=== PATIENT | female | born 1985 | race American Indian/Alaskan Native ===

== ENCOUNTER 2021-07-27 15:46 | Observation (INO) | payer OTHER ==
[2021-07-27] MEDS ORDERED: LACTATED RINGERS 1,000 ML IV ONE (18:44)
[2021-07-27] MEDS ORDERED: DOCUSATE SODIUM 100 MG CAP PO PRN (18:47)
[2021-07-27] MEDS ORDERED: ACETAMINOPHEN 325 MG TAB PO PRN (18:47)
--- NOTE | 2021-07-27 18:59 | History and Physical Report ---
History of Present Illness Date of examination: 07/27/21 Date of admission: 07/27/2021 Chief complaint: Contractions History of present illness: 36 year old female presents to L&D complaining of contractions. Patient denies vaginal bleeding. Patient reports slightly decreased movement today. Patient denies falls or abdominal trauma. Patient receives care at [facility]. No records are available. Patient states her EDC is 08/28/21. LMP uncertain. Patient reports no problems during except echogenic intracardiac foci on US which she states was no longer seen on follow up US. Patient denies any health problems. She states she is taking PNV and iron supplements. Patient reports a history of 4 previous full term vaginal births. US and labs were drawn upon admission. Past History Past Medical History: no pertinent history Past Surgical History: other (inguinal hernia repaired at age 7 years) [facility] History: denies: chlamydia, gonorrhea, hepatitis B, hepatitis C, HIV, syphilis, trichomonas Family/Genetic History: diabetes, heart disease, cancer Social history: lives with family, full code. denies: smoking, alcohol abuse, prescription drug abuse, IV drug use - Obstetrical History Expected Date of Delivery: 08/28/21 Actual Gestation: 35 Week(s) 3 Day(s) : 6 Para: 4 Hx # Term Pregnancies: 4 Number of Pregnancies: 0 Spontaneous Abortions: 1 Induced : 0 Number of Living Children: 4 Medications and Allergies Allergies Allergy/AdvReac Type Severity Reaction Status Date / Time No Known Allergies Allergy Verified 02/22/18 00:57 Home Medications Medication Instructions Recorded Confirmed Last Taken Type Ferrous Sulfate [Iron] 1 tab PO BID 02/24/18 02/24/18 02/22/18 History Tablet 1 tab PO DAILY 02/24/18 02/24/18 02/22/18 History Active Meds: Active Medications Acetaminophen (Acetaminophen 325 Mg Tab) 650 mg PO Q4H PRN PRN Reason: Pain MILD(1-3)/Fever >100.5/MERIDA Betamethasone Acet/Betameth SodPhos (Betamet Acet/Betamet Na Ph 6 Mg/Ml Inj 5 Ml Mdv) 12 mg IM Q24HR KIRK Stop: 07/28/21 10:01 Docusate Sodium (Docusate Sodium 100 Mg Cap) 100 mg PO Q12H PRN PRN Reason: Constipation Lactated Ringer's (Lactated Ringers) 1,000 mls @ 999 mls/hr IV BOLUS ONE Stop: 07/27/21 19:44 Lactated Ringer's (Lactated Ringers) 1,000 mls @ 125 mls/hr IV DIRECT KIRK Multivitamins/Iron/Calcium ( [id number] Fumarate-Folic Acid Vit Tab) 1 each PO QDAY KIRK Review of Systems All systems: negative (contractions, slightly decreased movement) - Vital Signs Vital signs: Vital Signs Pulse Pulse Ox 94 H 96 07/27/21 18:08 07/27/21 18:08 Temp Pulse Resp BP Pulse Ox 98.3 F 98 H 99/58 98 07/27/21 18:30 07/27/21 18:53 07/27/21 18:16 07/27/21 18:53 ROM plus negative. - Physical Exam Abdomen: Positive: normal appearance, soft. Negative: distention, tenderness, guarding, rigidity Genitourinary (Female): Positive: normal external genitalia, normal perenium. Negative: perineal/vulvar lesions Vagina: Positive: normal moisture Uterus: Positive: enlarged. Negative: tender Anus/Rectum: Positive: normal perianal skin Extremities: Negative: tenderness - Obstetrical FHR: category 1 Uterine Contraction Monitor Mode: External Cervical Dilatation: 2 Cervical Effacement Percentage: 50 station: -3 Uterine Contraction Pattern: Irregular Uterine Contraction Intensity: Mild Results All other labs normal. Assessment and Plan A: at 35 weeks, 3 days gestation. contractions. Decreased movement. No records available. P: Admit for 23 hour observation. Continuous EFM. US for EFW, EDC/EGA, JERI, location of placenta, and presentation. labs, urinalysis, urine culture, UDS. IV hydration. Celestone 12 mg IM every 24 hours x 2 doses. Request records. Consulted with Dr. Santos re: this patient and plan of care. Dr. Santos states she is in agreement with POC.
[2021-07-27] MEDS ORDERED: BETAMET ACET/BETAMET NA PH 6 MG/ML INJ 5 ML MDV IM SCH (19:00)
[2021-07-27] MEDS ORDERED: NalbUPHINE 10 MG/1 ML INJ IV ONE (20:49)
[2021-07-27 21:01] LABS: Basophils % (Auto) 0.3 % (0.0-1.8); Eosinophils # (Auto) 0.1 K/mm3 (0.0-0.4); Eosinophils % (Auto) 0.5 % (0.0-4.3); Hematocrit 31.7 % (30.3-42.9); Hemoglobin 11.1 gm/dl (10.1-14.3); Lymphocytes # (Auto) 2.1 K/mm3 (1.2-5.4); Lymphocytes % (Auto) 19.7 % (13.4-35.0); Mean Corpuscular HGB Conc 35 % (30-34); Mean Corpuscular Volume 86 fl (79-97); Monocytes # (Auto) 0.9 K/mm3 (0.0-0.8); Monocytes % (Auto) 8.7 % (0.0-7.3); Platelet Count 222 K/mm3 (140-440); Red Blood Count 3.67 M/mm3 (3.65-5.03); Red Cell Distribution Width 13.8 % (13.2-15.2)
--- NOTE | 2021-07-27 21:36 | Ultrasound Report ---
ULTRASOUND OBSTETRIC INDICATION / CLINICAL INFORMATION: JERI, EDC/EGA, EFW, location placenta, presentation. - Clinical Gestational Age (GA) in weeks, days: 35, 4 TECHNIQUE: Transabdominal. COMPARISON: None available. FINDINGS: Single intrauterine . Biparietal Diameter = 9.2 cm = 37, 2 weeks, days Head Circumference = 29.9 cm = 33, 1 weeks, days Abdominal Circumference = 31.1 cm = 35, 0 weeks, days Femur Length = 7.2 cm = 36, 4 weeks, days Average Ultrasound Age (AUA) = 35, 4 weeks, days Heart Rate: 141 beats per minute. Estimated Weight in grams (if calculated): 2668 g Estimated Weight Growth Percentile (if calculated): 50% Position: cephalic. Cervix: Not visualized. Length in cm (if measured): Not measured Placenta: Right lateral and free of the os. Amniotic Fluid Volume: normal Amniotic Fluid Index (JERI) in cm (if calculated): 7. Maternal Adnexa: Not visualized BREATHING MOVEMENT = 2 GROSS BODY MOVEMENT = 2 TONE = 2 QUALITATIVE AMNIOTIC FLUID VOLUME = 2 TOTAL BIOPHYSICAL SCORE = 8/8 IMPRESSION: 1. Single, living intrauterine with estimated sonographic age of 35, 4 weeks, days. 2. Biophysical score = 8/8. 3. No acute abnormality. Signer Name: Loco Haynes MD Signed: 07/27/2021 9:32 PM Workstation Name: [id number]
[2021-07-27 21:59] LABS: Bilirubin,Urine NEG (Negative); Blood,Urine NEG (Negative); Color,Urine Yellow (Yellow); Protein,Urine <15 mg/dL mg/dL (Negative); RBC,Urine < 1.0 /HPF (0.0-6.0); Urobilinogen,Urine < 2.0 mg/dL (<2.0); WBC,Urine < 1.0 /HPF (0.0-6.0)
[2021-07-27 22:05] LABS: Amphetamine Screen,Urine Negative; Benzodiazepines Screen,Urine Negative; Cannabinoid Screen,Urine Negative; Cocaine Screen,Urine Negative; Methadone Screen,Urine Negative; Opiate Screen,Urine Negative
[2021-07-27 22:23] LABS: Hepatitis C Virus Antibody Non-Reactive (NonReactive)
[2021-07-27] MEDS: LACTATED RINGERS 1,000 ML IV SCH (22:47)
[2021-07-28] MEDS: LACTATED RINGERS 1,000 ML IV SCH (01:29)
--- NOTE | 2021-07-28 04:17 | Progress Note ---
Assessment and Plan A: at 35 weeks, 4 days gestation. contractions. P: Continuous EFM. Patient has received IV hydration. For second dose of steroids this evening as ordered. Subjective - Subjective Date of service: 07/28/21 Principal diagnosis: at 35 weeks, 4 days gestation Patient reports: movement normal, other (contractions are spacing), no new complaints, no loss of fluid, no vaginal bleeding Objective - Vital Signs Vital Signs: Vital Signs - 12hr 07/27/21 07/27/21 07/27/21 18:08 18:13 18:16 Temperature Pulse Rate 94 H 88 85 Respiratory Rate Blood Pressure 99/58 Blood Pressure [Left] O2 Sat by Pulse 96 96 Oximetry 07/27/21 07/27/21 07/27/21 18:18 18:23 18:28 Temperature Pulse Rate 93 H 90 90 Respiratory Rate Blood Pressure Blood Pressure [Left] O2 Sat by Pulse 96 96 98 Oximetry 07/27/21 07/27/21 07/27/21 18:30 18:33 18:38 Temperature 98.3 F Pulse Rate 88 95 H Respiratory Rate Blood Pressure Blood Pressure [Left] O2 Sat by Pulse 96 97 Oximetry 07/27/21 07/27/21 07/27/21 18:43 18:48 18:53 Temperature Pulse Rate 98 H 81 98 H Respiratory Rate Blood Pressure Blood Pressure [Left] O2 Sat by Pulse 97 97 98 Oximetry 07/27/21 07/27/21 07/27/21 18:58 18:59 19:03 Temperature Pulse Rate 90 96 H 86 Respiratory Rate Blood Pressure Blood Pressure [Left] O2 Sat by Pulse 94 94 96 Oximetry 07/27/21 07/27/21 07/27/21 19:13 19:18 19:23 Temperature Pulse Rate 34 L 97 H 86 Respiratory Rate Blood Pressure Blood Pressure [Left] O2 Sat by Pulse 91 96 97 Oximetry 07/27/21 07/27/21 07/27/21 19:28 19:33 19:38 Temperature Pulse Rate 78 89 91 H Respiratory Rate Blood Pressure Blood Pressure [Left] O2 Sat by Pulse 96 96 96 Oximetry 07/27/21 07/27/21 07/27/21 19:43 19:48 19:53 Temperature Pulse Rate 90 91 H 88 Respiratory Rate Blood Pressure Blood Pressure [Left] O2 Sat by Pulse 96 96 98 Oximetry 04/07/27/21 07/27/21 19:57 19:58 20:03 Temperature Pulse Rate 53 L 84 84 Respiratory Rate Blood Pressure Blood Pressure [Left] O2 Sat by Pulse 88 94 98 Oximetry 07/27/21 07/27/21 07/27/21 20:08 20:13 20:18 Temperature Pulse Rate 91 H 87 84 Respiratory Rate Blood Pressure Blood Pressure [Left] O2 Sat by Pulse 97 97 97 Oximetry 07/27/21 07/27/21 07/27/21 20:23 20:28 20:33 Temperature Pulse Rate 89 94 H 86 Respiratory Rate Blood Pressure Blood Pressure [Left] O2 Sat by Pulse 97 98 97 Oximetry 07/27/21 07/27/21 07/27/21 20:38 20:43 20:48 Temperature Pulse Rate 87 84 84 Respiratory Rate Blood Pressure Blood Pressure [Left] O2 Sat by Pulse 98 100 100 Oximetry 07/27/21 07/27/21 07/27/21 20:53 20:58 21:03 Temperature Pulse Rate 94 H 90 91 H Respiratory Rate Blood Pressure Blood Pressure [Left] O2 Sat by Pulse 99 99 100 Oximetry 07/27/21 07/27/21 07/27/21 21:18 21:19 21:20 Temperature Pulse Rate 86 88 Respiratory 14 Rate Blood Pressure 112/69 Blood Pressure 112/69 [Left] O2 Sat by Pulse 99 98 Oximetry 07/27/21 07/27/21 07/27/21 21:24 21:29 21:34 Temperature Pulse Rate 83 92 H 107 H Respiratory Rate Blood Pressure Blood Pressure [Left] O2 Sat by Pulse 98 97 95 Oximetry 07/27/21 07/27/21 07/27/21 21:39 21:44 21:49 Temperature Pulse Rate 100 H 91 H 92 H Respiratory Rate Blood Pressure Blood Pressure [Left] O2 Sat by Pulse 96 95 95 Oximetry 07/27/21 07/27/21 07/27/21 21:54 21:59 22:04 Temperature Pulse Rate 93 H 92 H 91 H Respiratory Rate Blood Pressure Blood Pressure [Left] O2 Sat by Pulse 97 100 99 Oximetry 07/27/21 07/27/21 07/27/21 22:09 22:14 22:24 Temperature Pulse Rate 92 H 89 99 H Respiratory Rate Blood Pressure 120/61 Blood Pressure [Left] O2 Sat by Pulse 97 98 97 Oximetry 07/27/21 07/27/21 07/27/21 22:28 22:29 22:34 Temperature Pulse Rate 101 H 101 H Respiratory 18 Rate Blood Pressure Blood Pressure [Left] O2 Sat by Pulse 97 97 Oximetry 07/27/21 07/27/21 07/27/21 22:39 22:44 22:49 Temperature Pulse Rate 94 H 97 H 95 H Respiratory Rate Blood Pressure Blood Pressure [Left] O2 Sat by Pulse 96 96 96 Oximetry 07/27/21 07/27/21 07/27/21 22:52 22:54 22:59 Temperature Pulse Rate 89 88 88 Respiratory Rate Blood Pressure Blood Pressure [Left] O2 Sat by Pulse 94 98 98 Oximetry 07/27/21 07/27/21 07/27/21 23:01 23:04 23:07 Temperature Pulse Rate 91 H 106 H 93 H Respiratory Rate Blood Pressure Blood Pressure [Left] O2 Sat by Pulse 94 98 94 Oximetry 07/27/21 07/27/21 07/27/21 23:09 23:14 23:17 Temperature Pulse Rate 104 H 94 H 95 H Respiratory Rate Blood Pressure Blood Pressure [Left] O2 Sat by Pulse 95 97 93 Oximetry 07/27/21 07/27/21 07/27/21 23:19 23:23 23:24 Temperature Pulse Rate 95 H 95 H 95 H Respiratory Rate Blood Pressure Blood Pressure [Left] O2 Sat by Pulse 96 94 96 Oximetry 07/27/21 07/27/21 07/27/21 23:28 23:29 23:34 Temperature Pulse Rate 98 H 91 H Respiratory 18 Rate Blood Pressure Blood Pressure [Left] O2 Sat by Pulse 93 94 Oximetry 07/27/21 07/27/21 07/27/21 23:35 23:39 23:42 Temperature Pulse Rate 91 H 89 88 Respiratory Rate Blood Pressure Blood Pressure [Left] O2 Sat by Pulse 94 89 94 Oximetry 07/27/21 07/27/21 07/27/21 23:44 23:47 23:49 Temperature Pulse Rate 86 92 H 93 H Respiratory Rate Blood Pressure Blood Pressure [Left] O2 Sat by Pulse 95 94 97 Oximetry 07/27/21 07/27/21 07/28/21 23:54 23:59 00:04 Temperature Pulse Rate 85 95 H 90 Respiratory Rate Blood Pressure Blood Pressure [Left] O2 Sat by Pulse 96 95 95 Oximetry 0407/28/21 07/28/21 00:07 00:09 00:13 Temperature Pulse Rate 91 H 90 85 Respiratory Rate Blood Pressure Blood Pressure [Left] O2 Sat by Pulse 92 94 91 Oximetry 07/28/21 07/28/21 07/28/21 00:14 00:19 00:21 Temperature Pulse Rate 92 H 90 81 Respiratory Rate Blood Pressure Blood Pressure [Left] O2 Sat by Pulse 95 96 90 Oximetry 07/28/21 07/28/21 07/28/21 00:24 00:29 00:34 Temperature Pulse Rate 98 H 80 89 Respiratory Rate Blood Pressure Blood Pressure [Left] O2 Sat by Pulse 94 96 96 Oximetry 07/28/21 07/28/21 07/28/21 00:39 00:44 00:50 Temperature Pulse Rate 88 88 84 Respiratory Rate Blood Pressure Blood Pressure [Left] O2 Sat by Pulse 99 94 98 Oximetry 07/28/21 07/28/21 07/28/21 00:53 00:55 01:00 Temperature Pulse Rate 82 94 H 92 H Respiratory Rate Blood Pressure 115/69 Blood Pressure [Left] O2 Sat by Pulse 92 97 97 Oximetry 07/28/21 07/28/21 07/28/21 01:05 01:09 01:10 Temperature Pulse Rate 92 H 81 79 Respiratory Rate Blood Pressure Blood Pressure [Left] O2 Sat by Pulse 95 92 98 Oximetry 07/28/21 07/28/21 07/28/21 01:15 01:19 01:20 Temperature Pulse Rate 84 76 89 Respiratory Rate Blood Pressure Blood Pressure [Left] O2 Sat by Pulse 97 94 96 Oximetry 07/28/21 07/28/21 07/28/21 01:24 01:25 01:29 Temperature Pulse Rate 89 89 78 Respiratory Rate Blood Pressure Blood Pressure [Left] O2 Sat by Pulse 94 96 94 Oximetry 07/28/21 07/28/21 07/28/21 01:30 01:35 01:40 Temperature Pulse Rate 85 84 88 Respiratory Rate Blood Pressure Blood Pressure [Left] O2 Sat by Pulse 96 96 98 Oximetry 07/28/21 07/28/21 07/28/21 01:43 01:45 01:50 Temperature Pulse Rate 95 H 86 85 Respiratory Rate Blood Pressure Blood Pressure [Left] O2 Sat by Pulse 93 96 96 Oximetry 07/28/21 07/28/21 07/28/21 01:54 01:55 01:59 Temperature Pulse Rate 86 89 90 Respiratory Rate Blood Pressure Blood Pressure [Left] O2 Sat by Pulse 94 95 94 Oximetry 07/28/21 07/28/21 07/28/21 02:00 02:05 02:07 Temperature Pulse Rate 83 92 H 88 Respiratory Rate Blood Pressure Blood Pressure [Left] O2 Sat by Pulse 93 96 94 Oximetry 07/28/21 07/28/21 07/28/21 02:10 02:13 02:15 Temperature Pulse Rate 92 H 95 H 94 H Respiratory Rate Blood Pressure Blood Pressure [Left] O2 Sat by Pulse 95 94 95 Oximetry 07/28/21 07/28/21 07/28/21 02:20 02:25 02:27 Temperature Pulse Rate 93 H 90 96 H Respiratory Rate Blood Pressure Blood Pressure [Left] O2 Sat by Pulse 95 97 94 Oximetry 07/28/21 07/28/21 07/28/21 02:30 02:33 02:35 Temperature Pulse Rate 94 H 87 90 Respiratory Rate Blood Pressure Blood Pressure [Left] O2 Sat by Pulse 95 93 96 Oximetry 07/28/21 07/28/21 07/28/21 02:38 02:40 02:44 Temperature Pulse Rate 85 97 H 92 H Respiratory Rate Blood Pressure Blood Pressure [Left] O2 Sat by Pulse 94 96 94 Oximetry 07/28/21 07/28/21 07/28/21 02:45 02:50 02:53 Temperature Pulse Rate 93 H 98 H 96 H Respiratory Rate Blood Pressure Blood Pressure [Left] O2 Sat by Pulse 95 97 94 Oximetry 07/28/21 07/28/21 07/28/21 02:55 02:59 03:00 Temperature Pulse Rate 96 H 95 H 90 Respiratory Rate Blood Pressure Blood Pressure [Left] O2 Sat by Pulse 96 91 91 Oximetry 07/28/21 07/28/21 07/28/21 03:05 03:10 03:13 Temperature Pulse Rate 95 H 98 H 97 H Respiratory Rate Blood Pressure Blood Pressure [Left] O2 Sat by Pulse 94 96 93 Oximetry 07/28/21 07/28/21 07/28/21 03:15 03:20 03:35 Temperature Pulse Rate 102 H 99 H 93 H Respiratory Rate Blood Pressure Blood Pressure [Left] O2 Sat by Pulse 96 95 98 Oximetry 07/28/21 07/28/21 07/28/21 03:40 03:45 03:50 Temperature Pulse Rate 89 101 H 95 H Respiratory Rate Blood Pressure Blood Pressure [Left] O2 Sat by Pulse 95 95 96 Oximetry 07/28/21 07/28/21 07/28/21 03:55 04:00 04:05 Temperature Pulse Rate 92 H 92 H 91 H Respiratory Rate Blood Pressure Blood Pressure [Left] O2 Sat by Pulse 96 96 96 Oximetry 07/28/21 07/28/21 04:08 04:10 Temperature Pulse Rate 89 99 H Respiratory Rate Blood Pressure Blood Pressure [Left] O2 Sat by Pulse 93 95 Oximetry - Exam Cardiovascular: Regular rate Lungs: Clear to auscultation Abdomen: Present: normal appearance, soft. Absent: distention, tenderness, guarding, rigidity Uterus: Absent: tenderness Uterine Contraction Monitor Mode: External (Irregular mild contractions) - Labs Labs: Abnormal Labs 07/27/21 19:20 MCHC 35 H Foard % (Auto) 8.7 H Foard # (Auto) 0.9 H Seg Neutrophils % 70.8 H Laboratory Results - last 24 hr 07/27/21 07/27/21 07/27/21 19:20 19:20 21:10 WBC 10.8 RBC 3.67 Hgb 11.1 Hct 31.7 MCV 86 MCH 30 MCHC 35 H RDW 13.8 Plt Count 222 Lymph % (Auto) 19.7 Foard % (Auto) 8.7 H Eos % (Auto) 0.5 Baso % (Auto) 0.3 Lymph # (Auto) 2.1 Foard # (Auto) 0.9 H Eos # (Auto) 0.1 Baso # (Auto) 0.0 Seg Neutrophils % 70.8 H Seg Neutrophils # 7.6 Urine Color Yellow Urine Turbidity Clear Urine pH 7.0 Ur Specific [place] 1.009 Urine Protein <15 mg/dl Urine Glucose (UA) Neg Urine Ketones 20 Urine Blood Neg Urine Nitrite Neg Urine Bilirubin Neg Urine Urobilinogen < 2.0 Ur Leukocyte Esterase Neg Urine WBC (Auto) < 1.0 Urine RBC (Auto) < 1.0 U Epithel Cells (Auto) < 1.0 Membranes Rupture Urine Opiates Screen Urine Methadone Screen Ur Barbiturates Screen Ur Phencyclidine Scrn Ur Amphetamines Screen U Benzodiazepines Scrn Urine Cocaine Screen U Marijuana (THC) Screen Drugs of Abuse Note Syphilis IgG/IgM Ab Hep Bs Antigen Hepatitis C Antibody HIV 1&2 Antibody Rapid HIV P24 Antigen Rubella IgG Antibody Blood Type A POSITIVE Antibody Screen Negative 07/27/21 07/27/21 07/27/21 21:10 21:10 21:10 WBC RBC Hgb Hct MCV MCH MCHC RDW Plt Count Lymph % (Auto) Foard % (Auto) Eos % (Auto) Baso % (Auto) Lymph # (Auto) Foard # (Auto) Eos # (Auto) Baso # (Auto) Seg Neutrophils % Seg Neutrophils # Urine Color Urine Turbidity Urine pH Ur Specific [place] Urine Protein Urine Glucose (UA) Urine Ketones Urine Blood Urine Nitrite Urine Bilirubin Urine Urobilinogen Ur Leukocyte Esterase Urine WBC (Auto) Urine RBC (Auto) U Epithel Cells (Auto) Membranes Rupture Urine Opiates Screen Negative Urine Methadone Screen Negative Ur Barbiturates Screen Negative Ur Phencyclidine Scrn Negative Ur Amphetamines Screen Negative U Benzodiazepines Scrn Negative Urine Cocaine Screen Negative U Marijuana (THC) Screen Negative Drugs of Abuse Note Disclamer Syphilis IgG/IgM Ab Nonreactive Hep Bs Antigen Hepatitis C Antibody Non-reactive HIV 1&2 Antibody Rapid Non react HIV P24 Antigen Non react Rubella IgG Antibody Immune Blood Type Antibody Screen 07/27/21 07/27/21 21:10 Unknown WBC RBC Hgb Hct MCV MCH MCHC RDW Plt Count Lymph % (Auto) [place]oard % (Auto) Eos % (Auto) Baso % (Auto) Lymph # (Auto) Foard # (Auto) Eos # (Auto) Baso # (Auto) Seg Neutrophils % Seg Neutrophils # Urine Color Urine Turbidity Urine pH Ur Specific [place] Urine Protein Urine Glucose (UA) Urine Ketones Urine Blood Urine Nitrite Urine Bilirubin Urine Urobilinogen Ur Leukocyte Esterase Urine WBC (Auto) Urine RBC (Auto) U Epithel Cells (Auto) Membranes Rupture Negative Urine Opiates Screen Urine Methadone Screen Ur Barbiturates Screen Ur Phencyclidine Scrn Ur Amphetamines Screen U Benzodiazepines Scrn Urine Cocaine Screen U Marijuana (THC) Screen Drugs of Abuse Note Syphilis IgG/IgM Ab Hep Bs Antigen Non-reactive Hepatitis C Antibody HIV 1&2 Antibody Rapid HIV P24 Antigen Rubella IgG Antibody Blood Type Antibody Screen
[2021-07-28 05:56] VITALS: BP 102/54
--- NOTE | 2021-07-28 07:51 | Event Note ---
Date: 07/28/21 Dr. Santos checked patient and states no cervical change. Dr. Santos orders to discharge patient home now. Discussed with patient discharge instructions and warning signs. Advised patient to return to L&D triage this evening for second dose of Celestone IM. Advised patient to avoid intercourse and to rest. Advised patient to perform daily movement counting. Advised patient to follow up at [facility] on Friday07/30/21. Patient voiced understanding of all instructions.
--- NOTE | 2021-07-28 07:54 | Discharge Summary ---
Providers - Providers Date of Admission: 07/27/21 18:48 Date of discharge: 07/28/21 Attending physician: MY BUENROSTRO Primary care physician: MY BUENROSTRO Hospitalization Reason for admission: other ( at 35 weeks, 4 days gestation) Discharge diagnosis: other ( , undelivered) Pertinent studies: Labs Hospital course: Stable hospital course Condition at discharge: Good Disposition: 01 HOME / SELF CARE / HOMELESS - Discharge Diagnoses (1) 35 weeks gestation of Status: Acute Plan - Provider Discharge Summary Activity: routine Diet: routine Instructions: routine Additional instructions: Rest at home. Avoid intercourse. Perform daily movement counting. Follow up in L&D triage this evening for second steroid injection. Follow up at [facility] office on Friday07/30/21. - Follow up plan Follow up: [facility] [Referring] - 48 Hours
[2021-07-28] MEDS ORDERED: PRENATAL VIT27-FE FUMARATE-FOLIC ACID VIT TAB PO SCH (10:00)
== END 2021-07-28 08:58 | disposition home or self-care (01) ==
LOC: TRG 15:46 → APU 15:49 → LD 17:47 → TRG 19:07
PROVIDERS: ADMIT Obstetrics & Gynecology; ATTEND Obstetrics & Gynecology
DX: O62.9 Abnormality of forces of labor, unspecified (principal); E66.3 Overweight; O36.8130 Decreased fetal movements, third trimester, not applicable or unspecified; O60.03 Preterm labor without delivery, third trimester; Z79.899 Other long term (current) drug therapy; Z98.890 Other specified postprocedural states; Z3A.35 35 weeks gestation of pregnancy
CPT/HCPCS: 36415; 59025; 76816; 76819; 80307; 81001; 84112; 85025; 86592; 86706; 86762; 86803; 86850; 86900; 86901; 87086; 87806; 96372; 96374; G0378; J0702; J2300; J7120; 76815